=== PATIENT | male | born 1960 | race Caucasian/White ===

== ENCOUNTER 2018-05-08 09:59 | Day surgery (SDC) | payer OTHER ==
[2018-05-08] MEDS ORDERED: PROTAMINE SULFATE 50 MG/5 ML VIAL IVP PRN (10:28)
[2018-05-08] MEDS ORDERED: HEPARIN 10,000 UNIT/10 ML MDV (1,000 UNIT/ML) IVP PRN (10:28)
[2018-05-08] MEDS ORDERED: NALOXONE HCL 0.4 MG/ML INJ IVP PRN (10:28)
[2018-05-08] MEDS ORDERED: FLUMAZENIL 0.5 MG/5 ML MDV IVP PRN (10:28)
[2018-05-08] MEDS ORDERED: ALTEPLASE 2 MG VIAL IVP PRN (10:28)
[2018-05-08] MEDS ORDERED: fentaNYL 100 MCG/2 ML INJ IVP PRN (10:28)
[2018-05-08] MEDS ORDERED: GLUCAGON HCL 1 MG VIAL IVP PRN (10:28)
[2018-05-08] MEDS ORDERED: MIDAZOLAM 2 MG/2 ML VIAL IVP PRN (10:28)
[2018-05-08] MEDS ORDERED: MEPERIDINE 25 MG/ML SYR IVP PRN (10:28)
[2018-05-08] MEDS ORDERED: NS 1,000 ML IV SCH (10:30)
[2018-05-08] MEDS ORDERED: NALOXONE HCL 0.4 MG/ML INJ ONE (10:35)
[2018-05-08] MEDS ORDERED: FLUMAZENIL 0.5 MG/5 ML MDV IVP ONE (10:35)
[2018-05-08] MEDS ORDERED: ONDANSETRON 4 MG/2 ML VIAL ONE (10:35)
[2018-05-08] MEDS ORDERED: fentaNYL 100 MCG/2 ML INJ ONE (10:36)
[2018-05-08] MEDS ORDERED: MIDAZOLAM 2 MG/2 ML VIAL ONE (10:36)
--- NOTE | 2018-05-08 12:21 | PDPROPOC ---
Sedation Plan of Care Sedation Plan of Care: vital signs stable, mental status noted, patient educated of risks, benefits, alternatives, patient can tolerate sedation ASA Classification: ASA 2 Planned drugs: fentanyl, midazolam Mallampati Score: Class 2 Mallampati Reference Image: Patient passed 3-3-2 rule?: Yes
--- NOTE | 2018-05-08 12:21 | PDRADPRE ---
Radiology History & Physical Indication for procedure: liver disease Home medications: Ambien 05/04/18 [Last Taken Unknown] Metformin HCl 05/04/18 [Last Taken Unknown] Oxycodone HCl 05/04/18 [Last Taken Unknown] Allergies/Adverse Reactions: No Known Allergies Allergy (Unverified 05/08/18 10:27) Mental status: A&Ox3 Heart exam: regular rate and rhythm Lungs exam: clear to auscultation Mallampati Score: Class 2 (Liver biopsy of progressing hepatic lesions)
[2018-05-08] MEDS ORDERED: ALBUMIN 25% 100 ML SOLN IV ONE (12:57)
[2018-05-08] MEDS ORDERED: ALBUMIN 25% 100 ML IV ONE (13:16)
[2018-05-08] MEDS ORDERED: oxyCODONE IR 5 MG TAB PO PRN (14:10)
[2018-05-08] MEDS ORDERED: ONDANSETRON 4 MG/2 ML VIAL IVP PRN (14:10)
--- NOTE | 2018-05-08 14:14 | PDRADPN ---
Radiology Procedure Note Date of Procedure: 05/08/18 Radiologist: Hunter Ortiz Anesthesia: IV Sedation Pre-op Diagnosis: HCC Post-op Diagnosis: HCC Indication: Hepatic tumors with history of HCC and prostate CA Procedure: Paracentesis, Liver biopsy Finding(s): Unable to biopsy dome lesion given large volume ascites despite paracentesis. Drained caudal perihepatic fluid to faciliate safe approach to smaller right lobe lesion that was FDG avid on PET. Inf/Abcess present in the surg proc area at time of surgery?: No
[2018-05-08 16:54] VITALS: BP 105/79
== END 2018-05-08 16:52 | disposition home or self-care (01) ==
LOC: FIMAGING 09:59
PROVIDERS: ATTEND Internal Medicine Hematology & Oncology
PROC: 0W9G3ZZ Drainage of Peritoneal Cavity, Percutaneous Approach (ICD-10-PCS; principal; 2018-05-08 14:08)
PROC: BW201ZZ Computerized Tomography (CT Scan) of Abdomen using Low Osmolar Contrast (ICD-10-PCS; principal; 2018-05-08 14:08)
PROC: 0FB03ZX Excision of Liver, Percutaneous Approach, Diagnostic (ICD-10-PCS; principal; 2018-05-08 14:08)
DX: C22.0 Liver cell carcinoma (principal); B19.20 Unspecified viral hepatitis C without hepatic coma; F17.210 Nicotine dependence, cigarettes, uncomplicated; Z85.46 Personal history of malignant neoplasm of prostate
CPT/HCPCS: J2250; J2310; J2405; J3010; P9047

== ENCOUNTER → 2018-05-23 | Outpatient (CLI) | payer OTHER ==
[~2018-05-23] MED LIST: ALBUMIN 25% 200 ML IV ONE; ALBUMIN 25% 50 ML SOLN IV ONE; LIDOCAINE 1% 300 MG/30 ML SDV ONE
== END ==
LOC: FIMAGING 14:11
PROVIDERS: ATTEND Internal Medicine
PROC: 0W9G3ZX Drainage of Peritoneal Cavity, Percutaneous Approach, Diagnostic (ICD-10-PCS; principal; 2018-05-23)
DX: R18.8 Other ascites (principal)
CPT/HCPCS: P9047

== ENCOUNTER → 2018-05-25 | Outpatient (CLI) | payer OTHER | LOC: FIMAGING 07:46 | PROVIDERS: ATTEND Nurse Practitioner | DX: R16.0 Hepatomegaly, not elsewhere classified (principal); K76.89 Other specified diseases of liver; Z86.19 Personal history of other infectious and parasitic diseases ==

== ENCOUNTER → 2018-06-01 | Outpatient (CLI) | payer OTHER ==
[~2018-06-01] MED LIST changes: +ALBUMIN 25% 100 ML SOLN IV ONE; -ALBUMIN 25% 200 ML IV ONE; -ALBUMIN 25% 50 ML SOLN IV ONE
== END ==
LOC: FIMAGING 09:30
PROVIDERS: ATTEND Internal Medicine Hematology & Oncology
PROC: 0W9D3ZZ Drainage of Pericardial Cavity, Percutaneous Approach (ICD-10-PCS; principal; 2018-06-01)
DX: C22.0 Liver cell carcinoma (principal)
CPT/HCPCS: P9047

== ENCOUNTER 2018-06-06 14:47 | Inpatient (IN) | payer MEDICAID, OTHER ==
[2018-06-06] MEDS ORDERED: LORazepam 2 MG/ML INJ IVP PRN ×2 (15:53→15:55)
[2018-06-06] MEDS ORDERED: ONDANSETRON DISINTEGRATING 4 MG TAB PO PRN (15:53)
[2018-06-06] MEDS ORDERED: ACETAMINOPHEN 325 MG TAB PO PRN (15:53)
[2018-06-06] MEDS ORDERED: PROMETHAZINE HCL 25 MG/ML INJ IVP PRN (15:53)
[2018-06-06] MEDS ORDERED: ONDANSETRON 4 MG/2 ML VIAL IVP PRN (15:53)
[2018-06-06] MEDS ORDERED: BISACODYL 10 MG SUPP PR PRN (15:55)
[2018-06-06] MEDS ORDERED: MAGNESIUM HYDROXIDE 30 ML UDCUP PO PRN (15:55)
[2018-06-06] MEDS ORDERED: HALOPERIDOL LACT 5 MG/ML INJ IVP PRN (15:55)
[2018-06-06] MEDS ORDERED: DEXAMETHASONE 4 MG/ML VIAL IVP PRN (15:55)
[2018-06-06] MEDS ORDERED: HALOPERIDOL 0.5 MG TAB PO PRN (15:55)
[2018-06-06] MEDS: morphINE 10 MG/0.5 ML UDSYR PO PRN ×2 (17:25→22:35)
[2018-06-07] MEDS: morphINE 10 MG/0.5 ML UDSYR PO PRN ×3 (00:47→18:09)
--- NOTE | 2018-06-07 03:35 | GHP ---
DATE OF ADMISSION: 06/06/2018 CHIEF COMPLAINT: Confusion. HISTORY: This is a 57-year-old man who has a past medical history that includes hepatitis C and alco hol abuse along with cirrhosis, and a more recent diagnosis of hepatocellular carcinoma, who is sent to the hospital from his oncologist's office for concerns that he is failing to thrive and requires m ore assistance around end of life care. The patient was noted to be very somnolent with a distended abdomen, pitting edema, and difficulty with ambulation while in his oncologist's office and for that reason, he was sent here. They feel he is appropriate for and in need of hospice-type care. At the time of my evaluation, patient is hardly able to answer questions, though he is able to answer yes or no appropriately. He is very somnolent. He states he has pain in his abdomen, but that he does not wish to take any pain medications. PAST MEDICAL HISTORY: Includes: 1. Hepatitis C. 2. Alcohol abuse. 3. Cirrhosis. 4. Hepatocellular carcinoma. 5. History of prostate cancer. 6. History of IV drug use. 7. Hypertension. 8. Diabetes. 9. Kidney stones. PAST SURGICAL HISTORY: Includes radioembolization of liver tumors. FAMILY HISTORY: Reviewed and noncontributory. SOCIAL HISTORY: Patient is a previous heavy drinker. He is a nonsmoker. REVIEW OF SYSTEMS: This is unobtainable secondary to patient's mental status. MEDICATIONS: Include: 1. Zolpidem. 2. Oxycodone. 3. Lasix. ALLERGIES: No known drug allergies. PHYSICAL EXAM: VITAL SIGNS: BP 131/81, heart rate 84, respiratory rate 14, O2 sat is 92% on room ai r, temperature is 36.4. GENERAL APPEARANCE: This is a chronically ill-appearing man. He is awake b ut somnolent. EYES: Scleral icterus is appreciated. HEENT: Oropharynx is clear. There are dry mu cous membranes. CARDIOVASCULAR: Regular rate and rhythm, no MRG. PULMONARY: CTA to anterior exam with diminished breath sounds at the bases. ABDOMEN: Distended and tense, mildly tender to palpatio n with decreased breath sounds. EXTREMITIES: 2 to 3+ pitting edema to the knees. SKIN: Warm, dry, well perfused. NEURO/PSYCH: Patient is arousable but somnolent. He is answering questions with on ly yes or no. He is moving all 4 extremities without difficulty. CLINICAL DATA: Labs reviewed. Notable for sodium of 128, BUN of 68, creatinine of 3.0, total biliru bin of 28.9, conjugated is 25.7, AST is 392, ALT 83, alk phos 206. White blood cell count of 11, hem atocrit of 38.8, platelets of 150. ASSESSMENT/PLAN: This is a 57-year-old man with a past medical history of hepatitis C and alcohol-re lated cirrhosis, as well as hepatocellular carcinoma, presenting with worsening liver failure and acu te kidney injury, approaching end of life. 1. Worsening hepatic failure. This is in the setting of hepatocellular carcinoma and known cirrhosi s. His bilirubin continues to elevate, it is currently 28. He now also has acute kidney injury conc erning for hepatorenal syndrome. Patient does appear to be entering end-of-life stage and is interes tenisha in hospice care. This will be arranged through [facility] per his request or per his family's r equest as relayed to me by Oncology. 2. Hepatocellular carcinoma, as per above. 3. Acute kidney injury. Again, this is concerning for hepatorenal syndrome. His creatinine has romain e from 1.1 to 3 over the last week. Given his goals of care, we will not pursue any type of aggressi ve management. 4. Acute encephalopathy. This is likely at least in part due to hepatic encephalopathy. Patient is interested in hospice and for that reason, we will not start lactulose at this time. 5. Hyponatremia. This is presumably hypervolemic hyponatremia in the setting of decompensated cirrh osis. 6. Leukocytosis. This is mild and in the setting of chronic liver disease, likely related to the sa me. 7. Disposition. Inpatient status. I suspect patient will require greater than 48-hour stay for tip luation and management of above. 8. The patient is do not resuscitate. The patient is awaiting Hospice evaluation and perhaps placem ent. 9. The patient is new to my care. Old records reviewed, summarized as per HPI and Past Medical Hist ory. Care plan reviewed with Oncology, including plans for hospice and end of life care. /[id number]/MODL
--- NOTE | 2018-06-07 07:38 | PDMN ---
Medical Necessity Medical necessity: Pt meets inpt criteria per MD order and [facility] M-[id number], Liver Disease Complications. 57 y/o w/hx of Hepatitis C and alcohol-related cirrhosis and more recent diagnosis of hepatocellular carcinoma admitted w/worsening hepatic failure w/bilirubin of 28.9, acute kidney injury w/ creatinine 3.0, acute encephalopathy, and hyponatremia w/sodium 128. Anticipate >2MN for further med nec eval/management.
--- NOTE | 2018-06-07 09:01 | ASMTCMCOM ---
CM Note CM Note Notes: Call received from patient's sister Marjan. She has already spoken to [facility] and needs orders set via [facility]. Completed. Spoke with Luis=demar who plans to come and meet with patient at 2pm today. Family aware of need for POA documentation and are actively trying to retrieve copies.CM available should needs arise. Plan : [facility] Date Signed: 06/07/2018 09:00 AM Electronically Signed By:Alana Horn RN
--- NOTE | 2018-06-07 09:11 | ASMTLACE ---
MIRIAM Acuity / Level of Answers: Yes Care: Did the patient have an inpatient admission? Comorbidities - select Answers: Diabetes (uncontrolled or all that apply controlled) Moderate or severe liver or renal disease Palliative care / End of life trajectory Other Notes: HTN # of Emergency department Answers: 0 visits in the last 6 months Social determinants Answers: History of substance abuse (ETOH, street drugs, prescription drugs, etc.) Mental health diagnosis (anxiety, depression, pers onality disorders, etc.) Score: 17 Date Signed: 06/07/2018 09:10 AM Electronically Signed By:Angela Luke
--- NOTE | 2018-06-07 09:49 | HOSPPROG ---
Hospitalist Progress Note Assessment/Plan: 57yo M with etoh/hep C cirrhosis and hepatocellular carcinoma presents with worsening liver failure, DELONTE, encephalopathy. He is approaching the end of his life. #Acute on chronic liver failure - Hospice consult placed, HERMELINDA to meet with him and family this afternoon - Comfort care order set placed for pain, nausea, distress #DELONTE: concerning for HRS #Hepatocellular carcinoma #Hepatic encephalopathy #Ascites Code: DNR Dispo: Inpatient for hospice eval, nearing end of life. Subjective: Patient somnolent. Arousable but minimal attention span. Denies pain. Family (daughter, brother, friend) at bedside. They are in agreement [facility]. Objective: Vital Signs Temp Pulse Resp BP Pulse Ox 36.4 C 88 14 131/81 H 90 L 06/06/18 20:11 06/07/18 05:53 06/07/18 05:53 06/06/18 20:11 06/07/18 05:53 - Time Spent With Patient Time Spent with Patient: greater than 25 minutes Time Spent with Patient: Greater than 25 minutes spent on this patients care, greater than 50% of time spent counseling, educating, and coordinating care regarding the above mentioned plan. - Physical Exam Constitutional: no apparent distress Eyes: PERRL, icteric sclera Ears, Nose, Mouth, Throat: dry mucous membranes Cardiovascular: regular rate and rhythym Respiratory: no respiratory distress Gastrointestinal: tenderness, ascites, distension Genitourinary: no bladder fullness Skin: other (jaundiced) Musculoskeletal: generalized weakness Neurologic: other (arousable) Psychiatric: encephalopathic Lymph, Heme, Immunologic: no cervical LAD ICD10 Worksheet Patient Problems: Problems Problem Status Onset Liver failure Acute Liver failure with hepatic coma Acute - ICD10 Problem Qualifiers (1) Liver failure (2) Liver failure with hepatic coma
--- NOTE | 2018-06-07 14:48 | ASMTCMCOM ---
CM Note CM Note Notes: Patient plan of care reviewed in rounds. Patient is terminally ill and actively dying. Family aware. Spoke with his sister Marjan who is his POA, unable to find/provide documentation so proxy form filled out. All family member in agreement with Marjan as proxy choice. All involved members jen, Maxime , Jorje's brother and daughter Keyla are present in room. Marjan via phone. Ronnie his son is not available but per Manpreet in agreement with his aunt as choice for proxy. I had physician sign. Meeting is set up for [facility] at 2 pm. Plan: TBD Date Signed: 06/07/2018 02:47 PM Electronically Signed By:Alana Horn RN
[2018-06-08] MEDS: morphINE 10 MG/0.5 ML UDSYR PO PRN ×3 (05:17→11:56)
--- NOTE | 2018-06-08 09:14 | PDDCSUM ---
Discharge Summary Discharge Summary: Date of Admission: 06/06/2018 Date of Discharge: 06/08/2018 Consultants: palliative/hospice care Disposition: home with home hospice Discharge Diagnoses: 1. Acute on chronic liver failure nearing end of life 2. Hepatic encephalopathy 3. Acute kidney injury 4. Hepatocellular carcinoma 5. EtOH/Hep C cirrhosis Brief Hospital Course: 57yo M with etoh/hep C cirrhosis and hepatocellular carcinoma presented from onc clinic with worsening liver failure, DELONTE, encephalopathy. He is approaching the end of his life. Hospice met with family and decision was made to pursue home hospice. He was discharged with morphine for pain although he was comfortable throughout this hospitalization. He is DNR. Medications: Please refer to EMR for complete list. Changes this admission include addition of roxanol. Physical Exam: Vitals reviewed, stable. Arousable to verbal stimuli, encephalopathic, distended abdomen with ascites, no abdominal tenderness, jaundiced, scleral icterus.
--- NOTE | 2018-06-08 09:29 | PDIAF ---
- Diagnosis Code Status: Do Not Resuscitate - Medication Management Discharge Medications: Medications to Continue on Transfer morphINE [Roxanol 10 mg/0.5 ml oral soln (*)] 5 - 20 mg PO Q2HRS PRN #200 ml 01/19 [Last Taken Unknown] Discharge Medications: Refer to the Discharge Home Medication list for PRN reason. - Orders Services needed: Home Skilled Nursing Care Face to Face: I certify that this patient was under my care and that I had the required [id number] encounter meeting the encounter requirements on the discharge day. My findings support the fact that the patient is homebound as defined in Home Care Face to Face Continued: CMS Chapter 7 Medicare Benefits Manual 30.1.1 , The condition of the patient is such that there exists a normal inability to leave home and consequently, leaving home would require a considerable and taxing effort. Additional Instructions: You are being set up with home hospice services. We are sending prescriptions for a medications to keep you comfortable to your pharmacy. - Follow Up Care Current Providers and Referrals: Regine Bailon MD [Primary Care Provider] -
--- NOTE | 2018-06-08 09:52 | ASMTCMCOM ---
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 PCS, DNR and Face sheet prepared. Pres[facility] e[facility]sent to [facility] in [place]. Spoke with daughter Troy who is aware. CM available should other needs arise. Plan: Home with hospice. Date Signed: 06/08/2018 09:52 AM Electronically Signed By:Alana Horn RN
[2018-06-08 10:26] VITALS: BP 111/56
--- NOTE | 2018-06-08 11:23 | ASMTCMCOM ---
CM Note CM Note Notes: [employer] doesn't appear in allscripts. Printed and faxed successfully to [facility]. Date Signed: 06/08/2018 11:22 AM Electronically Signed By:Alana Horn RN
== END 2018-06-08 12:22 | disposition hospice, home (50) | DRG 433 ==
LOC: F1N 15:17
PROVIDERS: ADMIT Internal Medicine; ATTEND Internal Medicine
DX: K70.40 Alcoholic hepatic failure without coma (principal); K70.30 Alcoholic cirrhosis of liver without ascites; N17.9 Acute kidney failure, unspecified; E87.1 Hypo-osmolality and hyponatremia; E11.9 Type 2 diabetes mellitus without complications; I10 Essential (primary) hypertension; B19.20 Unspecified viral hepatitis C without hepatic coma; Z66 Do not resuscitate; Z87.442 Personal history of urinary calculi; Z85.46 Personal history of malignant neoplasm of prostate; Z85.05 Personal history of malignant neoplasm of liver